=== PATIENT | male | born 1965 | race Caucasian/White ===

== ENCOUNTER 2021-06-07 11:21 | Inpatient (IN) | payer MEDICAID ==
[~2021-06-07] VITALS: Ht 177.8 cm; Wt 105.0 kg
[2021-06-07] MEDS ORDERED: HYDROcodone/acetaminophen 5mg/325mg tablet PO ONE (12:35)
[2021-06-07 14:06] LABS: C-REACTIVE PROTEIN 19.16 MG/DL (0.0-0.5)
[2021-06-07 14:33] LABS: WHITE BLOOD COUNT 8.4 X10'3 (4.5-11.0)
[2021-06-07 14:34] LABS: BASOPHILS % (AUTO) 0.2 % (0-1); EOSINOPHILS % (AUTO) 0 % (0-6); HEMATOCRIT 46.1 % (42.0-52.0); HEMOGLOBIN 15.7 g/dl (14.0-17.9); LYMPHOCYTES # (AUTO) 0.7 X10'3 (1.1-4.8); LYMPHOCYTES % (AUTO) 8.3 % (21-51); MEAN CORPUSCULAR HEMOGLOBIN 28.4 PG (27.0-31.0); MEAN CORPUSCULAR VOLUME 83.3 FL (78-98); MEAN PLATELET VOLUME 8.5 FL (7.4-10.4); MONOCYTES # (AUTO) 0.4 X10'3 (0-0.9); MONOCYTES % (AUTO) 4.4 % (2-12); NEUTROPHILS # (AUTO) 7.3 X10'3 (1.8-7.7); NEUTROPHILS % (AUTO) 87.1 % (42-75); PLATELET COUNT 274 X10'3 (140-440); RED BLOOD COUNT 5.53 X10'6 (4.70-6.10); RED CELL DISTRIBUTION WIDTH 14.6 % (11.5-14.5)
[2021-06-07 14:39] LABS: ABG BASE EXCESS 0.9 mmol/L (-2.0-2.0); ABG OXYGEN SATURATION 91.7 % (94-97); ABG PCO2 (T) 35.6 mmHg (35.0-48.0); ABG PO2 (T) 63.4 mmHg (75.0-100.0); ALLEN'S TEST POSITIVE; FCOHb 0.6 % (0.0-3.9); FLOW 5 L/min; FMetHb 0.1 % (0.0-1.5); FO2Hb 91.1 % (94-97); PATIENT TEMPERATURE 37.8; TOTAL HEMOGLOBIN 16.1 G/dl (14.0-18.0)
[2021-06-07 14:39] LABS: ALANINE AMINOTRANSFERASE 83 U/L (12-78); ALBUMIN 2.3 G/DL (3.4-5.0); ALBUMIN/GLOBULIN RATIO 0.5 (1.1-1.5); ALKALINE PHOSPHATASE 118 IU/L (46-116); ANION GAP 11 (8-16); ASPARTATE AMINO TRANSFERASE 136 U/L (10-37); BILIRUBIN,TOTAL 0.4 MG/DL (0.1-1.0); BLOOD UREA NITROGEN 16 MG/DL (7-18); CALCIUM 8.1 MG/DL (8.5-10.1); CHLORIDE 101 MMOL/L (99-107); GLUCOSE 116 MG/DL (70-104); POTASSIUM 3.7 MMOL/L (3.5-5.1); SODIUM 135 MMOL/L (135-145); TOTAL CARBON DIOXIDE 22.6 MMOL/L (24-32); TOTAL PROTEIN 6.8 G/DL (6.4-8.2); eGFR 78 ML/MIN
[2021-06-07] MEDS ORDERED: potassium Cl 40MEQ/1/2NS 520ml 520 ML IV PRN ×2 (16:05)
[2021-06-07] MEDS ORDERED: potassium Cl 20 mEq SR tablet PO PRN ×2 (16:05)
[2021-06-07] MEDS ORDERED: morphine 2 MG/ML inj. syringe IV PRN (16:05)
[2021-06-07] MEDS ORDERED: magnesium 4gm in 100ml NS 100 ML IV PRN (16:05)
[2021-06-07] MEDS ORDERED: ALBUTEROL INHALER 1 PUFF/90 MCG INHALER IH PRN (16:05)
[2021-06-07] MEDS ORDERED: ondansetron/PF 4mg/2ml inj IV PRN (16:05)
[2021-06-07] MEDS ORDERED: magnesium hydroxide 30ml (MOM) UD suspension PO PRN (16:05)
[2021-06-07] MEDS ORDERED: magnesium 2GM in 50ml NS 50 ML IV PRN (16:05)
[2021-06-07] MEDS ORDERED: mag hydrox/Alum hydrox/simeth 30ml oral suspension PO PRN (16:05)
[2021-06-07] MEDS ORDERED: nicotine 14mg patch - 24hr TD ONE (16:10)
[2021-06-07] MEDS ORDERED: NO HOME MEDS (16:19)
[2021-06-07 16:30] LABS: D-DIMER 1.53 MG/L FEU (0-0.50)
[2021-06-07] MEDS: morphine 2 MG/ML inj. syringe IV PRN (19:33)
--- NOTE | 2021-06-07 19:34 | NUR ---
PT SCREAMING.STATING HE IS IN PAIN FROM HEADACHE. PT NC WAS OFF AND SPO2 WAS AT 68% ON RA. PT PLACED BACK ON NC 5 LTRS WITH SPO2 RECOVERY TO 86%. WILL PAGE RT.
[2021-06-07] MEDS: acetaminophen 325mg tablet PO PRN (19:39)
[2021-06-07] MEDS: K and/or MAG REPLACEMENT MC SCH (20:00)
[2021-06-07] MEDS ORDERED: dexamethasone 4mg/ml inj IV SCH (20:00)
[2021-06-07] MEDS: dexamethasone 6 MG in D5W 100ml IV soln IV SCH (23:10)
[2021-06-07] MEDS: enoxaparin 50mg/0.5ml (from 3ml vial) syringe SUBCUT SCH (23:11)
[2021-06-07] MEDS: docusate sod 100mg capsule PO SCH (23:12)
[2021-06-08] VITALS (7 sets, daily range): BP systolic 130–157; BP diastolic 76–96
--- NOTE | 2021-06-08 06:26 | NUR ---
Problems reprioritized. Patient report given, questions answered & plan of care reviewed with MIHIR Tolentino .
--- NOTE | 2021-06-08 06:37 | NUR ---
Patient in room ORTHO 4011. I have received report from MIHIR Maguire and had the opportunity to ask questions and assume patient care.
[2021-06-08] MEDS: docusate sod 100mg capsule PO SCH ×2 (07:34→20:28)
[2021-06-08] MEDS: dexamethasone 6 MG in D5W 100ml IV soln IV SCH ×2 (07:34→20:28)
[2021-06-08] MEDS: enoxaparin 50mg/0.5ml (from 3ml vial) syringe SUBCUT SCH ×2 (07:35→20:28)
[2021-06-08] MEDS: K and/or MAG REPLACEMENT MC SCH ×2 (08:00→20:00)
[2021-06-08 08:38] LABS: BASOPHILS % (AUTO) 0.2 % (0-1); EOSINOPHILS % (AUTO) 0 % (0-6); HEMATOCRIT 45.1 % (42.0-52.0); HEMOGLOBIN 15.4 g/dl (14.0-17.9); LYMPHOCYTES # (AUTO) 0.6 X10'3 (1.1-4.8); LYMPHOCYTES % (AUTO) 9.1 % (21-51); MEAN CORPUSCULAR HEMOGLOBIN 28.4 PG (27.0-31.0); MEAN CORPUSCULAR HGB CONC 34.2 g/dL (33.0-36.5); MEAN PLATELET VOLUME 7.9 FL (7.4-10.4); MONOCYTES # (AUTO) 0.3 X10'3 (0-0.9); MONOCYTES % (AUTO) 4.7 % (2-12); PLATELET COUNT 329 X10'3 (140-440); RED BLOOD COUNT 5.43 X10'6 (4.70-6.10); RED CELL DISTRIBUTION WIDTH 14.5 % (11.5-14.5)
[2021-06-08 08:46] LABS: D-DIMER 1.49 MG/L FEU (0-0.50)
[2021-06-08 09:09] LABS: ALANINE AMINOTRANSFERASE 96 U/L (12-78); ALBUMIN 2.4 G/DL (3.4-5.0); ALBUMIN/GLOBULIN RATIO 0.5 (1.1-1.5); ALKALINE PHOSPHATASE 121 IU/L (46-116); ANION GAP 11 (8-16); ASPARTATE AMINO TRANSFERASE 134 U/L (10-37); BILIRUBIN,TOTAL 0.4 MG/DL (0.1-1.0); BLOOD UREA NITROGEN 19 MG/DL (7-18); BUN/CREATININE RATIO 18.6 (5.4-32.0); C-REACTIVE PROTEIN 15.83 MG/DL (0.0-0.5); CALCIUM 8.4 MG/DL (8.5-10.1); CHLORIDE 101 MMOL/L (99-107); CREATININE 1.02 MG/DL (0.60-1.10); GLUCOSE 144 MG/DL (70-104); MAGNESIUM 2.4 MG/DL (1.5-2.4); SODIUM 138 MMOL/L (135-145); TOTAL CARBON DIOXIDE 25.6 MMOL/L (24-32); eGFR 76 ML/MIN
[2021-06-08] MEDS: benzonatate 100mg capsule PO PRN (16:21)
--- NOTE | 2021-06-08 18:30 | NUR ---
Patient in room ORTHO 4011. I have received report from MIHIR Tolentino and had the opportunity to ask questions and assume patient care.
--- NOTE | 2021-06-08 18:31 | NUR ---
Problems reprioritized. Patient report given, questions answered & plan of care reviewed with MIHIR Lemus.
[2021-06-09] MEDS: benzonatate 100mg capsule PO PRN (00:27)
[2021-06-09 02:00] VITALS: BP 114/69
--- NOTE | 2021-06-09 06:19 | NUR ---
Problems reprioritized. Patient report given, questions answered & plan of care reviewed with MIHIR Roche.
--- NOTE | 2021-06-09 06:36 | NUR ---
Patient in room ORTHO 4011. I have received report from Mariah ASH and had the opportunity to ask questions and assume patient care.
[2021-06-09 06:55] VITALS: BP 131/81
[2021-06-09] MEDS: dexamethasone 6 MG in D5W 100ml IV soln IV SCH ×2 (07:38→19:51)
[2021-06-09] MEDS: docusate sod 100mg capsule PO SCH ×2 (07:38→19:59)
[2021-06-09] MEDS: enoxaparin 50mg/0.5ml (from 3ml vial) syringe SUBCUT SCH ×2 (07:41→19:52)
[2021-06-09 07:54] LABS: BASOPHILS % (AUTO) 0.1 % (0-1); EOSINOPHILS % (AUTO) 0 % (0-6); HEMATOCRIT 45.3 % (42.0-52.0); HEMOGLOBIN 15.1 g/dl (14.0-17.9); LYMPHOCYTES # (AUTO) 0.8 X10'3 (1.1-4.8); LYMPHOCYTES % (AUTO) 6.6 % (21-51); MEAN CORPUSCULAR HGB CONC 33.4 g/dL (33.0-36.5); MEAN CORPUSCULAR VOLUME 83.9 FL (78-98); MONOCYTES % (AUTO) 8.2 % (2-12); NEUTROPHILS # (AUTO) 10.8 X10'3 (1.8-7.7); NEUTROPHILS % (AUTO) 85.1 % (42-75); PLATELET COUNT 404 X10'3 (140-440); RED CELL DISTRIBUTION WIDTH 14.3 % (11.5-14.5); WHITE BLOOD COUNT 12.7 X10'3 (4.5-11.0)
[2021-06-09 07:56] LABS: D-DIMER 1.29 MG/L FEU (0-0.50)
[2021-06-09] MEDS: K and/or MAG REPLACEMENT MC SCH ×2 (08:00→19:58)
[2021-06-09 08:18] LABS: ALANINE AMINOTRANSFERASE 68 U/L (12-78); ALBUMIN 2.2 G/DL (3.4-5.0); ALBUMIN/GLOBULIN RATIO 0.5 (1.1-1.5); ALKALINE PHOSPHATASE 117 IU/L (46-116); ANION GAP 11 (8-16); BILIRUBIN,TOTAL 0.4 MG/DL (0.1-1.0); BLOOD UREA NITROGEN 24 MG/DL (7-18); BUN/CREATININE RATIO 26.1 (5.4-32.0); C-REACTIVE PROTEIN 4.94 MG/DL (0.0-0.5); CALCIUM 8.3 MG/DL (8.5-10.1); CHLORIDE 105 MMOL/L (99-107); CREATININE 0.92 MG/DL (0.60-1.10); GLUCOSE 156 MG/DL (70-104); MAGNESIUM 2.5 MG/DL (1.5-2.4); SODIUM 140 MMOL/L (135-145); TOTAL CARBON DIOXIDE 23.8 MMOL/L (24-32); TOTAL PROTEIN 6.6 G/DL (6.4-8.2); eGFR 85 ML/MIN
[2021-06-09 08:21] LABS: ASPARTATE AMINO TRANSFERASE 82 U/L (10-37); POTASSIUM 4.1 MMOL/L (3.5-5.1)
[2021-06-09 09:26] LABS: TOTAL CELLS COUNTED 100
[2021-06-09 09:28] LABS: ACANTHOCYTES FEW; BURR CELLS FEW; PLATELET ESTIMATE NORMAL; TEAR DROP CELLS FEW
[2021-06-09 10:55] VITALS: BP 133/76
[2021-06-09 18:00] VITALS: BP 130/67
--- NOTE | 2021-06-09 18:29 | NUR ---
Problems reprioritized. Patient report given, questions answered & plan of care reviewed with Estee ASH.
--- NOTE | 2021-06-09 20:02 | NUR ---
barcode for [facility]enox would not scan
[2021-06-09] MEDS: morphine 2 MG/ML inj. syringe IV PRN (20:46)
[2021-06-09 22:00] VITALS: BP 124/70
[2021-06-09] MEDS: LORazepam 2 mg/ml vial IV PRN (22:24)
[2021-06-10 02:00] VITALS: BP 122/71
[2021-06-10 06:00] VITALS: BP 131/76
--- NOTE | 2021-06-10 06:24 | NUR ---
Problems reprioritized. Patient report given, questions answered & plan of care reviewed with MIHIR Granados.
--- NOTE | 2021-06-10 06:25 | NUR ---
Patient in room ORTHO 4011A. I have received report from MIHIR SHEETS and had the opportunity to ask questions and assume patient care.
[2021-06-10 07:07] LABS: BASOPHILS % (AUTO) 0.1 % (0-1); EOSINOPHILS % (AUTO) 0 % (0-6); HEMATOCRIT 43.9 % (42.0-52.0); HEMOGLOBIN 15.1 g/dl (14.0-17.9); LYMPHOCYTES # (AUTO) 1.1 X10'3 (1.1-4.8); MEAN CORPUSCULAR HEMOGLOBIN 28.7 PG (27.0-31.0); MEAN CORPUSCULAR HGB CONC 34.4 g/dL (33.0-36.5); MEAN CORPUSCULAR VOLUME 83.3 FL (78-98); MEAN PLATELET VOLUME 7.7 FL (7.4-10.4); MONOCYTES # (AUTO) 1.5 X10'3 (0-0.9); MONOCYTES % (AUTO) 9.9 % (2-12); NEUTROPHILS # (AUTO) 12.7 X10'3 (1.8-7.7); PLATELET COUNT 490 X10'3 (140-440); RED BLOOD COUNT 5.27 X10'6 (4.70-6.10); RED CELL DISTRIBUTION WIDTH 14.5 % (11.5-14.5); WHITE BLOOD COUNT 15.2 X10'3 (4.5-11.0)
[2021-06-10 07:18] LABS: D-DIMER 1.08 MG/L FEU (0-0.50)
[2021-06-10 07:44] LABS: ALANINE AMINOTRANSFERASE 58 U/L (12-78); ALBUMIN/GLOBULIN RATIO 0.4 (1.1-1.5); ALKALINE PHOSPHATASE 109 IU/L (46-116); ANION GAP 10 (8-16); ASPARTATE AMINO TRANSFERASE 53 U/L (10-37); BILIRUBIN,TOTAL 0.4 MG/DL (0.1-1.0); BLOOD UREA NITROGEN 27 MG/DL (7-18); BUN/CREATININE RATIO 29.7 (5.4-32.0); C-REACTIVE PROTEIN 1.87 MG/DL (0.0-0.5); CALCIUM 8.3 MG/DL (8.5-10.1); CHLORIDE 104 MMOL/L (99-107); CREATININE 0.91 MG/DL (0.60-1.10); GLUCOSE 145 MG/DL (70-104); MAGNESIUM 2.8 MG/DL (1.5-2.4); SODIUM 139 MMOL/L (135-145); TOTAL CARBON DIOXIDE 25.3 MMOL/L (24-32); TOTAL PROTEIN 6.5 G/DL (6.4-8.2); eGFR 86 ML/MIN
[2021-06-10] MEDS: K and/or MAG REPLACEMENT MC SCH ×2 (08:00→20:00)
[2021-06-10 08:06] LABS: PLATELET ESTIMATE INCREASED; TOTAL CELLS COUNTED 100
[2021-06-10] MEDS: docusate sod 100mg capsule PO SCH ×2 (08:08→19:21)
[2021-06-10] MEDS: dexamethasone 6 MG in D5W 100ml IV soln IV SCH ×2 (08:08→19:21)
[2021-06-10] MEDS: enoxaparin 50mg/0.5ml (from 3ml vial) syringe SUBCUT SCH ×2 (08:09→19:21)
[2021-06-10 10:00] VITALS: BP 136/77
[2021-06-10 14:00] VITALS: BP 138/77
[2021-06-10] MEDS: LORazepam 2 mg/ml vial IV PRN (17:55)
[2021-06-10 18:00] VITALS: BP 128/77
--- NOTE | 2021-06-10 18:19 | NUR ---
Problems reprioritized. Patient report given, questions answered & plan of care reviewed with MIHIR Johnson.
[2021-06-10 22:00] VITALS: BP 141/78
[2021-06-11] MEDS: LORazepam 2 mg/ml vial IV PRN ×3 (01:40→20:15)
[2021-06-11 02:00] VITALS: BP 140/81
[2021-06-11 06:00] VITALS: BP 133/78
--- NOTE | 2021-06-11 06:26 | NUR ---
Problems reprioritized. Patient report given, questions answered & plan of care reviewed with richard Granados.
--- NOTE | 2021-06-11 06:30 | NUR ---
Patient in room ORTHO 4011A. I have received report from MIHIR Johnson and had the opportunity to ask questions and assume patient care.
[2021-06-11 07:07] LABS: BASOPHILS % (AUTO) 0.1 % (0-1); EOSINOPHILS % (AUTO) 0 % (0-6); HEMATOCRIT 46.2 % (42.0-52.0); HEMOGLOBIN 15.6 g/dl (14.0-17.9); LYMPHOCYTES # (AUTO) 0.9 X10'3 (1.1-4.8); LYMPHOCYTES % (AUTO) 5.2 % (21-51); MEAN CORPUSCULAR HEMOGLOBIN 28.2 PG (27.0-31.0); MEAN CORPUSCULAR HGB CONC 33.7 g/dL (33.0-36.5); MEAN CORPUSCULAR VOLUME 83.6 FL (78-98); MONOCYTES # (AUTO) 1.2 X10'3 (0-0.9); MONOCYTES % (AUTO) 7.1 % (2-12); NEUTROPHILS # (AUTO) 15.4 X10'3 (1.8-7.7); NEUTROPHILS % (AUTO) 87.6 % (42-75); PLATELET COUNT 569 X10'3 (140-440); RED BLOOD COUNT 5.53 X10'6 (4.70-6.10); RED CELL DISTRIBUTION WIDTH 14.3 % (11.5-14.5); WHITE BLOOD COUNT 17.5 X10'3 (4.5-11.0)
[2021-06-11 07:21] LABS: D-DIMER 1.75 MG/L FEU (0-0.50)
[2021-06-11] MEDS: dexamethasone 6 MG in D5W 100ml IV soln IV SCH ×2 (07:36→19:27)
[2021-06-11] MEDS: enoxaparin 50mg/0.5ml (from 3ml vial) syringe SUBCUT SCH ×2 (07:37→19:27)
[2021-06-11] MEDS: docusate sod 100mg capsule PO SCH ×2 (07:51→19:27)
[2021-06-11 07:53] LABS: ALANINE AMINOTRANSFERASE 63 U/L (12-78); ALBUMIN 2.2 G/DL (3.4-5.0); ALBUMIN/GLOBULIN RATIO 0.5 (1.1-1.5); ALKALINE PHOSPHATASE 103 IU/L (46-116); ANION GAP 10 (8-16); ASPARTATE AMINO TRANSFERASE 68 U/L (10-37); BILIRUBIN,TOTAL 0.4 MG/DL (0.1-1.0); BLOOD UREA NITROGEN 28 MG/DL (7-18); BUN/CREATININE RATIO 29.2 (5.4-32.0); C-REACTIVE PROTEIN 0.88 MG/DL (0.0-0.5); CALCIUM 8.1 MG/DL (8.5-10.1); CHLORIDE 103 MMOL/L (99-107); CREATININE 0.96 MG/DL (0.60-1.10); GLUCOSE 145 MG/DL (70-104); MAGNESIUM 2.7 MG/DL (1.5-2.4); POTASSIUM 4.3 MMOL/L (3.5-5.1); SODIUM 138 MMOL/L (135-145); TOTAL CARBON DIOXIDE 24.6 MMOL/L (24-32); TOTAL PROTEIN 6.5 G/DL (6.4-8.2); eGFR 81 ML/MIN
[2021-06-11] MEDS: K and/or MAG REPLACEMENT MC SCH ×2 (08:00→19:27)
[2021-06-11] MEDS: morphine 2 MG/ML inj. syringe IV PRN ×3 (09:06→21:06)
[2021-06-11 10:00] VITALS: BP 134/71
[2021-06-11] MEDS ORDERED: metoclopramide 5 mg/ml inj IV PRN (14:15)
--- NOTE | 2021-06-11 14:46 | NUR ---
Initial: Pt admit for acute respiratory failure secondary to COVID pneumonia. Currently on a regular diet and eating poorly with mostly 0% PO intake throughout LOS with occasional 25% PO intake. TC to RN with recommendation for NGTF with MD approval. RN reports pt with high anxiety at this time and very likely to not accept an NGT and with high probability for pulling out NGT IF one were to get placed. RN reports patient's poor PO intake is r/t sleeping through meals as pt will not wake once meals are being presented. Per RN pt was able to get up in chair for lunch 06/10 and pt with ~25% PO intake of that meal. Limited nutrition interventions at this time given patient's poor acceptance to PO intake. Recommend nutrition support IF PO intake does not improve and pt and MD agreeable. LBM 06/10. Will continue to follow closely. Recommendations: 1) Continue regular diet 2) Encourage PO intake; wake for meals 3) IF pt/MD agrees, consider nutrition support to meet estimated nutrient needs given mostly 0% PO intake since admit 4) Routine bowel care 5) Scaled weight this admit; weekly scaled weights thereafter Addendum: 06/11/21 at [address] Amended: Links added.
[2021-06-11 18:00] VITALS: BP 122/65
--- NOTE | 2021-06-11 18:24 | NUR ---
Problems reprioritized. Patient report given, questions answered & plan of care reviewed with MIHIR Bertrand.
--- NOTE | 2021-06-11 18:25 | NUR ---
Patient in room ORTHO 4011. I have received report from Roberta ASH and had the opportunity to ask questions and assume patient care.
[2021-06-11 22:00] VITALS: BP 133/70
[2021-06-12] MEDS: morphine 2 MG/ML inj. syringe IV PRN ×4 (01:58→17:48)
[2021-06-12 02:00] VITALS: BP 135/75
[2021-06-12 06:00] VITALS: BP 125/65
--- NOTE | 2021-06-12 06:10 | NUR ---
received report from richard woodruff
--- NOTE | 2021-06-12 06:23 | NUR ---
Problems reprioritized. Patient report given, questions answered & plan of care reviewed with Sharyn ASH.
[2021-06-12 06:44] LABS: D-DIMER 1.92 MG/L FEU (0-0.50)
[2021-06-12 06:52] LABS: ALANINE AMINOTRANSFERASE 77 U/L (12-78); ALBUMIN 2.2 G/DL (3.4-5.0); ALBUMIN/GLOBULIN RATIO 0.5 (1.1-1.5); ALKALINE PHOSPHATASE 97 IU/L (46-116); ANION GAP 11 (8-16); ASPARTATE AMINO TRANSFERASE 46 U/L (10-37); BILIRUBIN,TOTAL 0.4 MG/DL (0.1-1.0); BLOOD UREA NITROGEN 30 MG/DL (7-18); BUN/CREATININE RATIO 31.3 (5.4-32.0); C-REACTIVE PROTEIN 0.71 MG/DL (0.0-0.5); CALCIUM 8.2 MG/DL (8.5-10.1); CHLORIDE 104 MMOL/L (99-107); CREATININE 0.96 MG/DL (0.60-1.10); GLUCOSE 136 MG/DL (70-104); MAGNESIUM 2.5 MG/DL (1.5-2.4); POTASSIUM 4.7 MMOL/L (3.5-5.1); SODIUM 139 MMOL/L (135-145); TOTAL CARBON DIOXIDE 24.1 MMOL/L (24-32); TOTAL PROTEIN 6.4 G/DL (6.4-8.2); eGFR 81 ML/MIN
[2021-06-12 07:14] LABS: EOSINOPHILS % (AUTO) 0 % (0-6); HEMOGLOBIN 15.3 g/dl (14.0-17.9); MEAN CORPUSCULAR VOLUME 83.6 FL (78-98)
[2021-06-12 07:17] LABS: BASOPHILS % (AUTO) 0.1 % (0-1); HEMATOCRIT 44.6 % (42.0-52.0); LYMPHOCYTES # (AUTO) 0.8 X10'3 (1.1-4.8); LYMPHOCYTES % (AUTO) 5.4 % (21-51); MEAN CORPUSCULAR HEMOGLOBIN 28.6 PG (27.0-31.0); MEAN CORPUSCULAR HGB CONC 34.2 g/dL (33.0-36.5); MEAN PLATELET VOLUME 7.7 FL (7.4-10.4); MONOCYTES # (AUTO) 0.9 X10'3 (0-0.9); MONOCYTES % (AUTO) 6.1 % (2-12); NEUTROPHILS # (AUTO) 13.5 X10'3 (1.8-7.7); NEUTROPHILS % (AUTO) 88.4 % (42-75); PLATELET COUNT 597 X10'3 (140-440); RED BLOOD COUNT 5.33 X10'6 (4.70-6.10); WHITE BLOOD COUNT 15.2 X10'3 (4.5-11.0)
[2021-06-12] MEDS: K and/or MAG REPLACEMENT MC SCH ×2 (07:48→19:38)
[2021-06-12] MEDS: docusate sod 100mg capsule PO SCH ×2 (07:52→19:37)
[2021-06-12] MEDS: enoxaparin 50mg/0.5ml (from 3ml vial) syringe SUBCUT SCH ×2 (07:54→19:37)
[2021-06-12] MEDS: dexamethasone 6 MG in D5W 100ml IV soln IV SCH ×2 (07:57→19:37)
[2021-06-12] MEDS: LORazepam 2 mg/ml vial IV PRN ×3 (08:40→21:30)
[2021-06-12 10:00] VITALS: BP 101/66
[2021-06-12 11:58] LABS: TOTAL CELLS COUNTED 100
[2021-06-12 11:59] LABS: HYPERSEGMENTED NEUTROPHILS 2+; PLATELET ESTIMATE INCREASED; SMUDGE CELLS 1+
[2021-06-12 12:01] LABS: LARGE PLATELETS FEW
[2021-06-12] MEDS: lactose-reduced food (Ensure High Protein) 237ml bottle PO SCH ×2 (12:42→18:10)
[2021-06-12 15:09] VITALS: BP 94/73
[2021-06-12 18:00] VITALS: BP 115/66
--- NOTE | 2021-06-12 18:11 | NUR ---
gave report to richard ramsey
--- NOTE | 2021-06-12 18:13 | NUR ---
gave report to richard ramsey
--- NOTE | 2021-06-12 18:21 | NUR ---
Patient in room ORTHO 4011. I have received report from Sharyn ASH and had the opportunity to ask questions and assume patient care.
[2021-06-12 22:00] VITALS: BP 103/73
--- NOTE | 2021-06-13 00:10 | NUR ---
Had a 20 min conversation with the patient's girlfriend about the medication and oxygen we are providing. The girlfriend started yelling at staff that she could provide the same care at home for him. Educated her on his high oxygen demand and the need for the patient to be at the hospital.
[2021-06-13 02:00] VITALS: BP 139/83
[2021-06-13] MEDS: morphine 2 MG/ML inj. syringe IV PRN ×4 (05:01→19:58)
[2021-06-13 06:00] VITALS: BP 113/63
--- NOTE | 2021-06-13 06:10 | NUR ---
received report from richard ramsey
--- NOTE | 2021-06-13 06:23 | NUR ---
Problems reprioritized. Patient report given, questions answered & plan of care reviewed with Sharyn ASH.
[2021-06-13 07:41] LABS: BASOPHILS % (AUTO) 0.1 % (0-1); HEMOGLOBIN 15.2 g/dl (14.0-17.9); MEAN PLATELET VOLUME 7.9 FL (7.4-10.4); NEUTROPHILS % (AUTO) 89.4 % (42-75)
[2021-06-13 07:44] LABS: EOSINOPHILS % (AUTO) 0 % (0-6); HEMATOCRIT 45.2 % (42.0-52.0); LYMPHOCYTES # (AUTO) 0.8 X10'3 (1.1-4.8); LYMPHOCYTES % (AUTO) 4.7 % (21-51); MEAN CORPUSCULAR HEMOGLOBIN 28.1 PG (27.0-31.0); MEAN CORPUSCULAR HGB CONC 33.5 g/dL (33.0-36.5); MEAN CORPUSCULAR VOLUME 83.8 FL (78-98); MONOCYTES % (AUTO) 5.8 % (2-12); NEUTROPHILS # (AUTO) 14.9 X10'3 (1.8-7.7); PLATELET COUNT 645 X10'3 (140-440); RED CELL DISTRIBUTION WIDTH 13.8 % (11.5-14.5); WHITE BLOOD COUNT 16.6 X10'3 (4.5-11.0)
[2021-06-13 07:50] LABS: ALANINE AMINOTRANSFERASE 68 U/L (12-78); ALBUMIN 2.3 G/DL (3.4-5.0); ALBUMIN/GLOBULIN RATIO 0.6 (1.1-1.5); ALKALINE PHOSPHATASE 85 IU/L (46-116); ANION GAP 12 (8-16); ASPARTATE AMINO TRANSFERASE 31 U/L (10-37); BILIRUBIN,TOTAL 0.4 MG/DL (0.1-1.0); BLOOD UREA NITROGEN 29 MG/DL (7-18); C-REACTIVE PROTEIN 0.45 MG/DL (0.0-0.5); CALCIUM 8.4 MG/DL (8.5-10.1); CHLORIDE 102 MMOL/L (99-107); CREATININE 0.88 MG/DL (0.60-1.10); GLUCOSE 123 MG/DL (70-104); MAGNESIUM 2.3 MG/DL (1.5-2.4); POTASSIUM 4.7 MMOL/L (3.5-5.1); SODIUM 136 MMOL/L (135-145); TOTAL CARBON DIOXIDE 22.2 MMOL/L (24-32); TOTAL PROTEIN 6.3 G/DL (6.4-8.2); eGFR 90 ML/MIN
[2021-06-13] MEDS: lactose-reduced food (Ensure High Protein) 237ml bottle PO SCH ×3 (07:51→18:00)
[2021-06-13] MEDS: dexamethasone 6 MG in D5W 100ml IV soln IV SCH ×2 (07:55→19:30)
[2021-06-13] MEDS: enoxaparin 50mg/0.5ml (from 3ml vial) syringe SUBCUT SCH ×2 (07:55→19:30)
[2021-06-13] MEDS: docusate sod 100mg capsule PO SCH ×3 (07:55→19:30)
[2021-06-13] MEDS: K and/or MAG REPLACEMENT MC SCH ×2 (08:00→19:30)
[2021-06-13 09:05] LABS: D-DIMER 1.91 MG/L FEU (0-0.50)
[2021-06-13 10:38] VITALS: BP 84/66
[2021-06-13 11:54] LABS: LARGE PLATELETS FEW; PLATELET ESTIMATE INCREASED; TOTAL CELLS COUNTED 100
[2021-06-13 14:00] VITALS: BP 117/70
[2021-06-13 18:00] VITALS: BP 108/76
--- NOTE | 2021-06-13 18:15 | NUR ---
gave report to richard ramsey
--- NOTE | 2021-06-13 18:20 | NUR ---
Patient in room ORTHO 4011. I have received report from Sharyn ASH and had the opportunity to ask questions and assume patient care.
[2021-06-13] MEDS: LORazepam 2 mg/ml vial IV PRN (21:48)
[2021-06-13 22:00] VITALS: BP 108/76
[2021-06-14 02:00] VITALS: BP 115/76
[2021-06-14 06:00] VITALS: BP 122/72
--- NOTE | 2021-06-14 06:34 | NUR ---
Problems reprioritized. Patient report given, questions answered & plan of care reviewed with Safia ASH.
[2021-06-14] MEDS: docusate sod 100mg capsule PO SCH ×2 (08:00→19:48)
[2021-06-14] MEDS: K and/or MAG REPLACEMENT MC SCH ×2 (08:00→19:13)
[2021-06-14] MEDS: lactose-reduced food (Ensure High Protein) 237ml bottle PO SCH ×3 (08:00→18:00)
[2021-06-14 08:06] LABS: BASOPHILS % (AUTO) 0 % (0-1); EOSINOPHILS % (AUTO) 0.1 % (0-6); HEMATOCRIT 47.6 % (42.0-52.0); HEMOGLOBIN 16.3 g/dl (14.0-17.9); LYMPHOCYTES # (AUTO) 0.7 X10'3 (1.1-4.8); LYMPHOCYTES % (AUTO) 3.7 % (21-51); MEAN CORPUSCULAR HEMOGLOBIN 28.5 PG (27.0-31.0); MEAN CORPUSCULAR HGB CONC 34.2 g/dL (33.0-36.5); MEAN CORPUSCULAR VOLUME 83.3 FL (78-98); MEAN PLATELET VOLUME 7.8 FL (7.4-10.4); MONOCYTES # (AUTO) 1.4 X10'3 (0-0.9); MONOCYTES % (AUTO) 7.6 % (2-12); NEUTROPHILS # (AUTO) 15.8 X10'3 (1.8-7.7); NEUTROPHILS % (AUTO) 88.6 % (42-75); PLATELET COUNT 645 X10'3 (140-440); RED BLOOD COUNT 5.72 X10'6 (4.70-6.10); WHITE BLOOD COUNT 17.9 X10'3 (4.5-11.0)
[2021-06-14 08:39] LABS: ALANINE AMINOTRANSFERASE 66 U/L (12-78); ALBUMIN 2.6 G/DL (3.4-5.0); ALBUMIN/GLOBULIN RATIO 0.6 (1.1-1.5); ALKALINE PHOSPHATASE 87 IU/L (46-116); ANION GAP 9 (8-16); ASPARTATE AMINO TRANSFERASE 30 U/L (10-37); BILIRUBIN,TOTAL 0.5 MG/DL (0.1-1.0); BLOOD UREA NITROGEN 29 MG/DL (7-18); BUN/CREATININE RATIO 28.7 (5.4-32.0); C-REACTIVE PROTEIN 0.64 MG/DL (0.0-0.5); CALCIUM 9.1 MG/DL (8.5-10.1); CHLORIDE 99 MMOL/L (99-107); CREATININE 1.01 MG/DL (0.60-1.10); GLUCOSE 112 MG/DL (70-104); MAGNESIUM 2.4 MG/DL (1.5-2.4); POTASSIUM 4.7 MMOL/L (3.5-5.1); SODIUM 136 MMOL/L (135-145); TOTAL CARBON DIOXIDE 27.6 MMOL/L (24-32); TOTAL PROTEIN 7.2 G/DL (6.4-8.2); eGFR 77 ML/MIN
[2021-06-14 09:00] LABS: D-DIMER 2.15 MG/L FEU (0-0.50)
[2021-06-14 09:15] LABS: PLATELET ESTIMATE INCREASED; TOTAL CELLS COUNTED 100
[2021-06-14 09:16] LABS: HYPERSEGMENTED NEUTROPHILS 2+; TOXIC GRANULATION 1+
[2021-06-14 10:00] VITALS: BP 136/88
[2021-06-14] MEDS: morphine 2 MG/ML inj. syringe IV PRN ×2 (10:10→19:49)
[2021-06-14] MEDS: dexamethasone 6 MG in D5W 100ml IV soln IV SCH ×2 (10:34→19:48)
[2021-06-14] MEDS: calcium carbonate 500mg chew tablet PO PRN (10:34)
[2021-06-14] MEDS: pantoprazole 40mg Tablet.DR PO SCH (10:34)
[2021-06-14] MEDS: enoxaparin 50mg/0.5ml (from 3ml vial) syringe SUBCUT SCH ×2 (10:35→19:48)
--- NOTE | 2021-06-14 11:34 | NUR ---
Currently 93% sa02 on 10 L NC
[2021-06-14 14:00] VITALS: BP 112/68
[2021-06-14] MEDS: LORazepam 2 mg/ml vial IV PRN (15:08)
--- NOTE | 2021-06-14 15:48 | NUR ---
in good spirits but states he feels impending anxiety attack. Sitting in chair at edge of bed. Transferred back to the bed. Desat to 88% on 10L but recovered fairly quickly to mid 90's. IV was replaced. Knee wrapped (painful from old injury) Gave ativan. Pt tolerated activities well.
--- NOTE | 2021-06-14 16:47 | NUR ---
Reassessment: Pt continues eating poorly overall with mostly 0-25% PO intake of meals, though up to 100% PO intake at dinner 06/13 and 75% PO intake at lunch today. Pt receiving Ensure High Protein TID since 06/12, with average 54% PO intake of ONS. IF PO intake of meals does not improve pt would benefit from ONS change to Ensure Enlive for additional kcal/protein. LBM 06/10, with routine bowel care though pt refuses at times per EMR. Will continue to follow closely and make recommendations as appropriate. Recommendations: 1) Continue regular diet 2) Ensure High Protein TIDWM; consider ONS change to Ensure Enlive for additional kcal/protein IF PO intake does not improve 3) Encourage PO intake; wake pt for meals 4) IF pt/MD agrees, consider nutrition support to meet estimated nutrient needs given poor PO intake since admit 5) Routine bowel care 6) Scaled weight this admit; weekly scaled weights thereafter Addendum: 06/14/21 at [address] Amended: Links added.
[2021-06-14 18:00] VITALS: BP 121/78
--- NOTE | 2021-06-14 18:41 | NUR ---
Patient in room ORTHO 4011. I have received report from Safia ASH and had the opportunity to ask questions and assume patient care.
[2021-06-14 22:00] VITALS: BP 116/66
[2021-06-15 02:16] VITALS: BP 101/66
[2021-06-15 06:00] VITALS: BP 105/62
--- NOTE | 2021-06-15 06:32 | NUR ---
Problems reprioritized. Patient report given, questions answered & plan of care reviewed with Gilberto ASH.
[2021-06-15] MEDS: lactose-reduced food (Ensure High Protein) 237ml bottle PO SCH ×5 (08:00→20:45)
[2021-06-15] MEDS: K and/or MAG REPLACEMENT MC SCH ×2 (08:00→20:00)
[2021-06-15 08:07] LABS: BASOPHILS % (AUTO) 0.1 % (0-1); EOSINOPHILS % (AUTO) 0.2 % (0-6); HEMOGLOBIN 15.4 g/dl (14.0-17.9); LYMPHOCYTES # (AUTO) 0.6 X10'3 (1.1-4.8); MEAN CORPUSCULAR HEMOGLOBIN 28.2 PG (27.0-31.0); MEAN CORPUSCULAR HGB CONC 33.6 g/dL (33.0-36.5); MEAN PLATELET VOLUME 8.1 FL (7.4-10.4); MONOCYTES # (AUTO) 1.2 X10'3 (0-0.9); NEUTROPHILS # (AUTO) 13.5 X10'3 (1.8-7.7); NEUTROPHILS % (AUTO) 87.7 % (42-75); PLATELET COUNT 590 X10'3 (140-440); RED BLOOD COUNT 5.48 X10'6 (4.70-6.10); WHITE BLOOD COUNT 15.4 X10'3 (4.5-11.0)
[2021-06-15 08:18] LABS: D-DIMER 1.38 MG/L FEU (0-0.50)
[2021-06-15 08:32] LABS: ALANINE AMINOTRANSFERASE 56 U/L (12-78); ALBUMIN 2.4 G/DL (3.4-5.0); ALBUMIN/GLOBULIN RATIO 0.6 (1.1-1.5); ALKALINE PHOSPHATASE 73 IU/L (46-116); ANION GAP 10 (8-16); ASPARTATE AMINO TRANSFERASE 28 U/L (10-37); BILIRUBIN,TOTAL 0.5 MG/DL (0.1-1.0); BLOOD UREA NITROGEN 31 MG/DL (7-18); BUN/CREATININE RATIO 32.3 (5.4-32.0); C-REACTIVE PROTEIN 1.83 MG/DL (0.0-0.5); CALCIUM 8.6 MG/DL (8.5-10.1); CHLORIDE 103 MMOL/L (99-107); CREATININE 0.96 MG/DL (0.60-1.10); GLUCOSE 115 MG/DL (70-104); POTASSIUM 4.4 MMOL/L (3.5-5.1); SODIUM 137 MMOL/L (135-145); TOTAL CARBON DIOXIDE 23.8 MMOL/L (24-32); TOTAL PROTEIN 6.7 G/DL (6.4-8.2); eGFR 81 ML/MIN
[2021-06-15 09:00] LABS: BURR CELLS FEW; HYPERSEGMENTED NEUTROPHILS 2+; PLATELET ESTIMATE INCREASED; TOTAL CELLS COUNTED 100
[2021-06-15 10:00] VITALS: BP 99/66
[2021-06-15] MEDS: docusate sod 100mg capsule PO SCH ×2 (10:34→20:52)
[2021-06-15] MEDS: pantoprazole 40mg Tablet.DR PO SCH (10:34)
[2021-06-15] MEDS: LORazepam 2 mg/ml vial IV PRN (10:34)
[2021-06-15] MEDS: calcium carbonate 500mg chew tablet PO PRN (10:34)
[2021-06-15] MEDS: dexamethasone 6 MG in D5W 100ml IV soln IV SCH ×2 (10:34→20:52)
[2021-06-15] MEDS: enoxaparin 50mg/0.5ml (from 3ml vial) syringe SUBCUT SCH ×2 (10:35→20:54)
[2021-06-15 14:00] VITALS: BP 114/74
[2021-06-15] MEDS: acetaminophen 325mg tablet PO PRN (15:25)
[2021-06-15] MEDS: morphine 2 MG/ML inj. syringe IV PRN ×2 (16:19→21:06)
[2021-06-15 18:00] VITALS: BP 106/69
[2021-06-15 22:00] VITALS: BP 155/78
[2021-06-16 02:00] VITALS: BP 156/66
[2021-06-16 05:00] VITALS: BP 113/75
[2021-06-16] MEDS: K and/or MAG REPLACEMENT MC SCH ×2 (08:00→20:00)
[2021-06-16 08:19] LABS: BASOPHILS % (AUTO) 0.1 % (0-1); EOSINOPHILS % (AUTO) 0.1 % (0-6); HEMOGLOBIN 15.2 g/dl (14.0-17.9); LYMPHOCYTES # (AUTO) 0.7 X10'3 (1.1-4.8); NEUTROPHILS # (AUTO) 14.7 X10'3 (1.8-7.7); WHITE BLOOD COUNT 16.5 X10'3 (4.5-11.0)
[2021-06-16 08:21] LABS: HEMATOCRIT 44.9 % (42.0-52.0); MEAN CORPUSCULAR HEMOGLOBIN 28.4 PG (27.0-31.0); MEAN CORPUSCULAR HGB CONC 33.9 g/dL (33.0-36.5); MEAN CORPUSCULAR VOLUME 83.9 FL (78-98); MEAN PLATELET VOLUME 8.2 FL (7.4-10.4); MONOCYTES % (AUTO) 6.3 % (2-12); NEUTROPHILS % (AUTO) 89.5 % (42-75); PLATELET COUNT 636 X10'3 (140-440); RED BLOOD COUNT 5.35 X10'6 (4.70-6.10); RED CELL DISTRIBUTION WIDTH 13.6 % (11.5-14.5)
[2021-06-16 08:34] LABS: ALANINE AMINOTRANSFERASE 47 U/L (12-78); ALBUMIN 2.3 G/DL (3.4-5.0); ALBUMIN/GLOBULIN RATIO 0.5 (1.1-1.5); ALKALINE PHOSPHATASE 66 IU/L (46-116); ANION GAP 10 (8-16); ASPARTATE AMINO TRANSFERASE 20 U/L (10-37); BILIRUBIN,TOTAL 0.4 MG/DL (0.1-1.0); BLOOD UREA NITROGEN 29 MG/DL (7-18); BUN/CREATININE RATIO 29.9 (5.4-32.0); C-REACTIVE PROTEIN 0.87 MG/DL (0.0-0.5); CALCIUM 8.5 MG/DL (8.5-10.1); CHLORIDE 104 MMOL/L (99-107); CREATININE 0.97 MG/DL (0.60-1.10); GLUCOSE 122 MG/DL (70-104); POTASSIUM 4.6 MMOL/L (3.5-5.1); SODIUM 137 MMOL/L (135-145); TOTAL CARBON DIOXIDE 23.3 MMOL/L (24-32); TOTAL PROTEIN 6.6 G/DL (6.4-8.2); eGFR 80 ML/MIN
[2021-06-16] MEDS: lactose-reduced food (Ensure High Protein) 237ml bottle PO SCH (08:57)
[2021-06-16] MEDS: pantoprazole 40mg Tablet.DR PO SCH (09:00)
[2021-06-16] MEDS: docusate sod 100mg capsule PO SCH ×2 (09:00→19:34)
[2021-06-16] MEDS: dexamethasone 6 MG in D5W 100ml IV soln IV SCH ×2 (09:00→19:34)
[2021-06-16] MEDS: enoxaparin 50mg/0.5ml (from 3ml vial) syringe SUBCUT SCH ×2 (09:01→19:34)
[2021-06-16 10:00] VITALS: BP 121/60
[2021-06-16] MEDS: LORazepam 2 mg/ml vial IV PRN ×2 (13:07→19:57)
[2021-06-16 13:42] LABS: HYPERSEGMENTED NEUTROPHILS 1+; LARGE PLATELETS FEW; PLATELET ESTIMATE INCREASED; TOTAL CELLS COUNTED 100
[2021-06-16 14:00] VITALS: BP 121/76
[2021-06-16 18:00] VITALS: BP 119/75
--- NOTE | 2021-06-16 18:35 | NUR ---
Problems reprioritized. Patient report given, questions answered & plan of care reviewed with Christy ASH.
[2021-06-16] MEDS: morphine 2 MG/ML inj. syringe IV PRN (19:57)
[2021-06-16 22:00] VITALS: BP 126/76
--- NOTE | 2021-06-16 22:37 | NUR ---
1800 Patient in room ORTHO 4011. I have received report from JUAN JOSE ASH and had the opportunity to ask questions and assume patient care.
--- NOTE | 2021-06-17 00:52 | NUR ---
PATIENT LEFT AMA FROM THE UNIT AROUND 2229. HAD ROUNDED ON THE PATIENT AND THOUGHT HE WAS IN THE BATHROOM, APPROX. 0 FOUND AN IV POLE WITH [facility] TUBING AND A HOSPITAL GOWN AT THE DOUBLE DOORS OF THE UNIT AND DISCOVERED THE PATIENT HAD LEFT THE FLOOR. I CALLED THE CONTACT NUMBER IN THE PATIENT'S CHART AND SPOKE TO HIS GIRLFRIEND WHO CONFIRMED THAT HE WAS IN FACT HOME. PATIENT WAS IN HIS BED WHEN TECHS DID VITAL SIGNS AND SHORTLY AFTER THIS THE PATIENT WALKED OUT OF HIS ROOM THROUGH THE MIDDLE HALLWAY AND OUT THE DOOR INTO THE STAIRWELL WAS SEEN ON SEC[employer]ITY [employer] EXITING INTO THE BASEMENT AND OUT THE DOORS INTO THE PAVILION PARKING AREA WHERE THE GIRLFRIEND PICKED HIM UP AND DROVE HIM HOME. WHILE SPEAKING TO HER, SHE TOLD ME HE WAS TALKING ABOUT LEAVING EARLIER IN THE DAY AND SHE HAD CONTACTED NURSING RAISE DRILL OPERATOR FOR HELP IN GETTING HIM TO STAY. SHE CALLED BACK AGAIN AND SPOKE TO THE SALES AND SERVICE CONSULTANT AGAIN ASKING FOR HELP. I WAS NOT AWARE OF THIS, BUT DID HAVE A CONVERSATION WITH THE PATIENT AROUND 2029 THAT THE PULSE OX MACHINE FOR HIS ROOM MATE WAS CAUSING HIM A LOT OF ANXIETY, HE DID SEEM PRETTY ANXIOUS SO ADMINISTERED ATIVAN AND MORPHINE FOR HIS BACK PAIN. WHEN I REASSESSED HIS PAIN LEVEL PATIENT WAS RESTING AND STATED "FEELING BETTER". WHEN I SPOKE TO NURSING RAISE DRILL OPERATOR, YG, SHE DID CONFIRM THAT SHE HAD SPOKEN TO THE GIRLFRIEND BUT WAS BUSY AND HADN'T HAD A CHANCE TO LET ME KNOW THIS HAD BEEN HAPPENING SINCE EARLY SHIFT. GIRLFRIEND STATES SHE IS PLANNING ON GETTING HIM TO HER DOCTOR IN THE MORNING TO TRY AND GET SOME OXYGEN FOR HIM. I STRESSED THAT IT WAS VERY IMPORTANT AND THAT HE HAD BEEN ON 8L HI FLOW HERE, HER MOTHER JUST TODAY AND HAD ACCESS TO OXYGEN TANKS AT HER MOTHERS HOUSE AND WOULD PROBABLY GO GET A TANK FOR HIM TONIGHT UNTIL SHE CAN GET HIM TO THE DOCTOR TOMORROW. STATED TO ME THAT THE PATIENT SEEMED OK, AND WAS WATCHING HIS 02 SATS ON HIS WATCH AND THEY WERE IN THE HIGH 80'S. TAIHR(GIRLFRIEND) IS UPSET WITH HIM LEAVING AND THE ONLY REASON SHE CAME TO GET HIM WAS HE HAD TOLD HER HE WAS GOING TO WALK IF SHE DIDN'T COME FOR HIM. UNDERSTANDABLY, SHE DID NOT WANT HIM WALKING THAT FAR. I EDUCATED HER MUCH I COULD AND FEEL SHE UNDERSTANDS THE SEVERITY OF HIS DECISION TO LEAVE AND THE RISKS HE HAS PUT HIMSELF UNDER.
--- NOTE | 2021-06-17 14:26 | NUR ---
Spoke to [facility] patient girlfriend on phone saying patient requires 02. Patient left ama last night and was on 8L HF. I said we could not not qualify him for 02 because of the amount he was on and that he left ama, I said he would have to come to ED. She asked for me to please call the geriatric case manager, which I did. Sarah said same thing I said that patient has to come to ED. I called [facility] girlfriend back and relayed this message to her. She said okay and thanks,
== END 2021-06-16 23:30 | disposition left against medical advice (07) | DRG 137 ==
LOC: ER 11:22 → ED HOLD 16:09 → EDBEDREQ 20:07 → ORTHO 4S 06-08 00:18
PROVIDERS: ADMIT Family Medicine; ATTEND Family Medicine
PROC: 5A0955A Assistance with Respiratory Ventilation, Greater than 96 Consecutive Hours, High Flow/Velocity Cannula (ICD-10-PCS; principal; 2021-06-08)
DX: U07.1 COVID-19 (principal); J96.01 Acute respiratory failure with hypoxia; J12.82 Pneumonia due to coronavirus disease 2019; E43 Unspecified severe protein-calorie malnutrition; G93.40 Encephalopathy, unspecified; E66.01 Morbid (severe) obesity due to excess calories; F17.210 Nicotine dependence, cigarettes, uncomplicated; F41.0 Panic disorder [episodic paroxysmal anxiety]; K74.60 Unspecified cirrhosis of liver; Z85.05 Personal history of malignant neoplasm of liver; Z68.33 Body mass index [BMI] 33.0-33.9, adult; Z80.8 Family history of malignant neoplasm of other organs or systems; Z80.0 Family history of malignant neoplasm of digestive organs; Z71.6 Tobacco abuse counseling
CPT/HCPCS: 36415; 36600; 71045; 80053; 82803; 83605; 83735; 84145; 85007; 85018; 85025; 85379; 86140; 87040; 87081; 87502; 87503; 87635; 93005; 94760; 97110; 97116; 97161; 97530; 97535; 99285; C9803; G0378; J1100; J1650; J2060; J2270; J2765; J7060